=== PATIENT | male | born 1965 | race Caucasian/White ===

== ENCOUNTER → 2020-03-28 | Outpatient (CLI) | payer BC ==
--- NOTE | 2020-03-28 15:29 | RAD ---
EXAM: Bilateral knees, 3 views. HISTORY: Pain. COMPARISON: None. FINDINGS: 3 views of both knees are obtained. There is no fracture, dislocation or subluxation. There is enthesopathy along the superior left patella. There is no joint effusion. IMPRESSION: No acute osseous finding. Electronically signed by: Stormy Wong MD (03/28/2020 3:26 PM) [facility]
== END | disposition home or self-care (01) ==
LOC: DXRAD 13:27
PROVIDERS: ATTEND Family Medicine
DX: M17.11 Unilateral primary osteoarthritis, right knee (principal); M76.52 Patellar tendinitis, left knee
CPT/HCPCS: 73560